=== PATIENT | male | born 1990 | race Caucasian/White ===

== ENCOUNTER 2020-02-21 23:03 | Emergency (ER) | payer SELFPAY ==
[~2020-02-21] VITALS: Ht 175.3 cm; Wt 79.5 kg
[2020-02-21] MEDS ORDERED: HYDROcodone/acetaminophen 5mg/325mg tablet PO ONE (23:30)
[2020-02-21] MEDS ORDERED: ketorolac trometh inj. 60 MG/2 ML VIAL IM ONE (23:30)
[2020-02-21] MEDS ORDERED: HYDR-3965 PO (23:31)
[2020-02-21 23:57] VITALS: BP 118/65
== END 2020-02-21 23:58 | disposition home or self-care (01) ==
LOC: ER 23:04
DX: M79.661 Pain in right lower leg (principal); M25.561 Pain in right knee; S86.111A Strain of other muscle(s) and tendon(s) of posterior muscle group at lower leg level, right leg, initial encounter; Z79.899 Other long term (current) drug therapy; X50.9XXA Other and unspecified overexertion or strenuous movements or postures, initial encounter; Y93.02 Activity, running; Y92.89 Other specified places as the place of occurrence of the external cause; Y99.8 Other external cause status
CPT/HCPCS: 73564; 96372; 99283; J1885

== ENCOUNTER 2020-09-07 02:39 | Emergency (ER) | payer OTHER ==
[~2020-09-07] VITALS: Ht 180.3 cm; Wt 100.0 kg
[2020-09-07 02:43] VITALS: BP 125/74
[2020-09-07] MEDS ORDERED: ketorolac tromethamine 15mg/ml inj. IM ONE (02:50)
== END 2020-09-07 03:29 | disposition home or self-care (01) ==
LOC: ER 02:41
DX: S93.402A Sprain of unspecified ligament of left ankle, initial encounter (principal); F17.200 Nicotine dependence, unspecified, uncomplicated; F11.10 Opioid abuse, uncomplicated; I38 Endocarditis, valve unspecified; X50.9XXA Other and unspecified overexertion or strenuous movements or postures, initial encounter; Y93.89 Activity, other specified; Y92.89 Other specified places as the place of occurrence of the external cause; Y99.8 Other external cause status
CPT/HCPCS: 73610; 73630; 96372; 99284; J1885